=== PATIENT | male | born 1940 | race Caucasian/White ===

== ENCOUNTER → 2019-11-17 09:34 | Outpatient (CLI) | payer MEDICARE ==
--- NOTE | ~2019-11-17 | EC ---
PATIENT:BUTCH CHANG DATE OF SERVICE: 11/17/19 SEX: M MEDICAL RECORD: [id number] DATE OF : 40 LOCATION:[facility] AGE OF PATIENT: 79 ADMISSION DATE: 11/17/19 REFERRING PHYSICIAN: INTERPRETING PHYSICIAN: RADHA KOHLER MD ECHOCARDIOGRAM REPORT ECHO CHARGES 4 ECHO COMPLETE Date: 11/17/19 CLINICAL DIAGNOSIS: ANGINA/HAIR/SOB H/O HTN ECHOCARDIOGRAPHIC MEASUREMENTS (adult normal given) AC root (d.<3.7cm) 4.2 cm LV Septum d (<1.2 cm> 1.5 cm Valve Excursion 2.2 cm LV Septum (systole) 2.0 cm Left Atria (s.<4.0cm> 3.5 cm LVPW d(<1.2cm) 1.5 cm RV (d.<2.3cm) 2.8 cm LVPW (sytole) 2.0 cm LV diastole(<5.6CM) 7.1 cm MV E-F(>70mm/sec) cm LV systole 5.2 cm LVOT Diameter 2.1 cm MV exc.(>10mm) cm Est.ejection fraction (50-75%) % DOPPLER: LVIT cm/sec A 50.0 cm/sec E 117 cm/sec LA cm/sec RVSP 33.0 mmHg LVOT 81.0 cm/sec AOP1/2T m/s Asc. Ao 132 cm/sec RVOT 38.0 cm/sec RA cm/sec PA 120 cm/sec AV Gradient Peak 7.0 mmHg AV Mean 3.5 mmHg AV Area 1.9 cm MV Gradient Peak 5.9 mmHg MV Mean 2.0 mmHg MV Area cm COMMENTS: OP - HC Injection Molding Supervisor: 1 LINK LAVERNE Tow Truck Operator: 1 Dr. Kohler TAPE# PACS Pericardial Effusion N DATE OF SERVICE: ECHOCARDIOGRAM FINDINGS: 1. Left ventricular chamber size is mildly dilated. Left ventricular systolic function is moderately reduced at 35%. 2. Left atrium is within normal limits at 3.5 cm. Right atrium and right ventricular chamber sizes are mildly dilated. 3. Valvular structures have normal structure and motion. ECHOCARDIOGRAM REPORT [id number] BUTCH CHANG 4. Doppler interrogation reveals mild aortic insufficiency, moderate mitral regurgitation, mild tricuspid regurgitation, no other valvular insufficiency or stenosis. Pulmonary systolic pressure estimated at 33 mmHg. 5. No evidence of pericardial effusion or left ventricular thrombus. TRANSINT:[id number] Voice Confirmation ID: [id number] DOCUMENT ID: [id number] RADHA KOHLER MD CC: [id number] DICTATION DATE: 11/18/19 1108 PEDIATRICIAN/MEDICAL DOCTOR: 11/18/19 1308 DEP CLI 11/17/19 [facility] [address] [id number]
== END | disposition home or self-care (01) ==
LOC: D.HCCECHO 09:34
PROVIDERS: ATTEND Internal Medicine Interventional Cardiology
DX: I10 Essential (primary) hypertension (principal); I20.9 Angina pectoris, unspecified

== ENCOUNTER 2019-11-30 09:38 | Inpatient (IN) | payer MEDICARE ==
[2019-11-30] VITALS (11 sets, daily range): BP systolic 118–136; BP diastolic 47–85; BMI 23.5; BMI 22.5
[~2019-11-30] VITALS: Ht 182.9 cm; Wt 79.9 kg
--- NOTE | ~2019-11-30 | OP ---
PATIENT NAME: BUTCH CHANG MEDICAL RECORD: [id number] :40 LOCATION:[facility] ADMISSION DATE: SURGEON: RADHA KURTZ MD DATE OF OPERATION: 11/30/2019 DATE OF SERVICE: 11/30/2019 PROCEDURES: 1. Left heart catheterization. 2. Selective coronary angiography. 3. Left ventriculogram. INDICATION: Angina and coronary artery disease. PROCEDURE IN DETAIL: After informed consent was obtained and after detailed explanation of risks, benefits as well as alternative therapies, the patient elected to proceed with angiogram and heart catheterization. The right radial area was prepped and draped in normal sterile fashion. Right radial artery was cannulated via modified Seldinger technique with placement of 6-Namibian sheath. All catheters exchanged through this sheath. FINDINGS: Left ventriculogram was performed in standard 30-degree BASURTO view, reveals ejection fraction in lower limits of normal 45-50%. SELECTIVE CORONARY ANGIOGRAPHY: 1. Left main is with no significant angiographic disease. 2. Left anterior descending has 70% to 80% stenosis proximally. 3. The left circumflex has 99% stenosis with what appears to be ulceration proximally with good distal vessels suitable for grafting. The left anterior as well as has a good distal vessel suitable for grafting. 4. Right coronary artery has 90% stenosis times 2 with good distal vessel suitable for grafting. OVERALL IMPRESSION: Severe 3-vessel coronary artery disease, evaluate for bypass surgery. TRANSINT:[id number] Voice Confirmation ID: [id number] DOCUMENT ID: [id number] RADHA KURTZ MD CC: [id number] DICTATION DATE: 11/30/19 1129 OFFICE ASSISTANT: 11/30/19 [id number] [place] [address]
--- NOTE | ~2019-11-30 | HEMODYNAMI ---
PATIENT:BUTCH CHANG MEDICAL RECORD: [id number] : 40 LOCATION:[facility] ADMISSION DATE: 11/30/19 Generatedon:11/30/201911:31 Patient name: BUTCH CHANG Patient #: [id number] SSN: : 1940 Date of study: 11/30/2019 Page: Of Hemodynamic Procedure Report Patient Data Patient Demographics Procedure consent was obtained First Name: BUTCH Gender: Male Last Name: CHARLENE : 1940 Patient #: [id number] Age: 79 year(s) Race: Unknown Additional ID: [id number] Contact details Address: [address] [place] [address] State: [place] City: [place] Zip code: [address] Past Medical History Allergies: No known allergies Admission Admission Data Admission Date: 11/30/2019 Admission Time: 9:38 Procedure Procedure Types Cath Procedure Diagnostic Procedure LHC LH w/Coronaries Sedation Charges Moderate Sedation up to 15 minutes Procedure Description Procedure Date Procedure Date: 11/30/2019 Procedure Start Time: 11:17 Procedure End Time: 11:28 Procedure Staff Name Function Dexter Kohler MD Performing Physician Shanae Hoffman RT Monitor Hien Perales RT Scrub Lizandro Major RN Nurse Procedure Data Cath Procedure Fluoroscopy Diagnostic fluoroscopy Total fluoroscopy Time: 2.6 time: 2.6 min min Diagnostic fluoroscopy Total fluoroscopy dose: 697 dose: 697 mGy mGy Contrast Material Contrast Material Type Amount (ml) Isovue 300 65 Entry Location Entry Primary Successful Side Size Upsize Upsize Entry Closure Sexton ccessful Closure Location (Fr) 1 (Fr) 2 (Fr) Remarks Device Remarks Radial Right 6 Fr Mechanical artery Short Compression Estimated blood loss: 10 ml Diagnostic catheters Device Type Used For End Catheter Placement DIAGNOSTIC Hay 110cm 5 Procedure Fr catheter ([id number]) Procedure Complications No complications Procedure Medications Medication Administration Route Dosage Oxygen etCO2 Nasal cannula 2 l/min Lidocaine 2% added to field 20 Heparin Flush Bag added to field 2 bags (1000units/500ml NS) 0.9% NaCl I.V. 100 ml/hr Radial Cocktail I.A. 1 syringe (Verapamil 2mg/Nitro 400mcg/Heparin 1500units) Versed I.V. 1 mg Fentanyl I.V. 50 mcg Versed I.V. 1 mg Fentanyl I.V. 50 mcg Versed I.V. 0.5 mg Hemodynamics Rest Heart Rate: 59 (bpm) Snapshots Pre Cath Intra NCS Post Cath Vital Signs Time Heart Resp SPO2 etCO2 NIBP (mmHg) Rhythm Pain Sedation Rate (ipm) (%) (mmHg) Status Level (bpm) 11:09:01 67 19 98 29.2 153/90(128) NSR 0 (11) 10(A) , No pain 11:13:15 67 23 98 23.2 145/88(102) NSR 0 (11) 10(A) , No pain 11:17:31 63 20 97 24.8 128/74(103) NSR 0 (11) 9(A) , No pain 11:21:41 81 19 93 9 113/72(83) NSR 0 (11) 9(A) , No pain 11:25:48 71 12 94 0 113/62(92) NSR 0 (11) 9(A) , No pain 11:29:07 70 13 94 0 115/67(84) NSR 0 (11) 10(A) , No pain Medications Time Medication Route Dose Verified Delivered Reason Notes Effectiveness by by 11:08:01 Oxygen etCO2 2 l/min Dexter Bone used for Nasal Edita Major RN procedure cannula 11:08:07 Lidocaine 2% added 20ml Dexter Renteria for local to vial Edita Kohler MD anesthetic field 11:08:12 Heparin Flush added 2 bags Dexter Renteria used for Bag to Edita Kohler MD procedure (1000units/500ml field NS) 11:08:22 0.9% NaCl I.V. 100 Dexter Bone Per ml/hr Edita Major RN physician 11:08:38 Radial Cocktail I.A. 1 Dexter Renteria for (Verapamil syringe Edita Kohler MD vasodilation 2mg/Nitro 400mcg/Heparin 1500units) 11:15:18 Versed I.V. 1 mg Dexter Bone for sedation Edita Major RN 11:15:24 Fentanyl I.V. 50 mcg Dexter Bone for sedation Edita Major RN 11:19:32 Versed I.V. 1 mg Dexter Bone for sedation Edita Major RN 11:19:35 Fentanyl I.V. 50 mcg Dexter Bone for sedation Edita Major RN 11:23:58 Versed I.V. 0.5 mg Dexter Bone for sedation Edita Major RN Procedure Log Time Note 10:50:54 Shanae Hoffman RT(R) sent for patient. Start room use. 10:58:35 Diagnostic Cath Status : Elective 10:59:01 Time tracking: Regular hours (M-F 7:00 - 5:00) 10:59:04 Plan of Care:Hemodynamics will remain stable., Cardiac rhythm will remain stable., Comfort level will be maintained., Respiratory function will remain adequate., Patient/ family verbilizes understanding of procedure., Procedure tolerated without complication., Recovers from procedure without complications.. 10:59:19 Patient received from Pre/Post Procedure Room to CCL 2 Alert and oriented. Tansferred to table in Supine position. 10:59:21 Signed procedure consent form obtained from patient. 10:59:22 Warm blankets applied, and annita hugger turned on for patient comfort. 10:59:22 Correct patient and procedure confirmed by team. 10:59:23 ECG and BP/O2 sat monitors applied to patient. 11:07:50 Vital chart was started 11:08:01 Baseline sample Acquired. 11:08:01 Oxygen 2 l/min etCO2 Nasal cannula was administered by Lizandro Major RN; used for procedure; Verbal order read back and verified. 11:08:06 Full Disclosure recording started 11:08:07 Lidocaine 2% 20ml vial added to field was administered by Dexter Kohler MD; for local anesthetic; Verbal order read back and verified. 11:08:12 Heparin Flush Bag (1000units/500ml NS) 2 bags added to field was administered by Dexter Kohler MD; used for procedure; Verbal order read back and verified. 11:08:22 0.9% NaCl 100 ml/hr I.V. was administered by Lizandro Major RN; Per physician; Verbal order read back and verified. 11:08:38 Radial Cocktail (Verapamil 2mg/Nitro 400mcg/Heparin 1500units) 1 syringe I.A. was administered by Dexter Kohler MD; for vasodilation; Verbal order read back and verified. 11:09:06 H&P Date Dictated: 11/01/2019 Within 30 days and on chart., H&P Addendum completed by physician on day of procedure. (MUST COMPLETE FOR ALL OUTPATIENTS). 11:09:09 Pre-procedure instructions explained to patient. 11:09:16 Family in waiting room. 11:09:18 Patient NPO since Midnight. 11:09:26 Patient allergic to No known allergies 11:09:29 Is the patient allergic to Iodine/contrast media? No. 11:09:32 Is patient on blood thinner?No 11:09:33 If diabetic: On Metformin? No 11:09:37 Snore? No 11:10:16 Sleep apnea? No 11:10:22 Patient pain scale 0/10 ?. 11:10:31 IV patent on arrival in left forearm with 0.9% NaCl at KVO. 11:13:41 Lab results completed and on chart. 11:14:04 Stress Test: yes; abnormal apically 11:14:13 Right Radial & Right Groin area was prepped with chlora-prep and draped in sterile fashion 11:14:15 Alarms reviewed by R. N. 11:14:15 Sharps counted by scrub and verified by R.N. 11:14:16 Physician paged 11:14:19 Physician arrived 11:14:19 --------ALL STOP TIME OUT------ 11:14:20 Final Timeout: patient, procedure, and site verified with staff and physician. All members of the team are in agreement. 11:14:23 Right Radial & Right Groin site verified by team. 11:14:28 Fire Safety Assessment: A--An alcohol-based skin anteseptic being used preoperatively., C--Open oxygen or nitrous oxide is being used., D--An ESU, laser, or fiber-optic light is being used. 11:14:33 Physical assessment completed. ASA score P 2 - A patient with mild systemic disease as per Dexter Kohler MD. 11:14:40 2) 60-89 Mildly reduced kidney function, and other findings (as for stage 1) point to kidney disease. 11:15:18 Versed 1 mg I.V. was administered by Lizandro Major RN; for sedation; Verbal order read back and verified. 11:15:24 Fentanyl 50 mcg I.V. was administered by Lizandro Major RN; for sedation; Verbal order read back and verified. 11:16:26 Maximum allowable contrast dose (3.7 X eGFR X 0.75)172 ml. 11:16:35 Sedation plan: IV Moderate Sedation Medication:Versed, Fentanyl 11:16:40 Use device set Radial Dx or PCI 11:16:42 Procedure started. 11:17:56 Local anesthetic to right radial artery with Lidocaine 2% by Dexter Kohler MD.INITIAL ACCESS ONLY 11:18:08 A 6 Fr Short sheath was inserted into the Right Radial artery 11:18:13 J wire advanced. 11:18:15 ACIST Syringe (67117) opened to sterile field. 11:18:16 Medline Cath Pack ([id number]) opened to sterile field. 11:18:16 Bag Decanter (2002S) opened to sterile field. 11:18:17 ACIST Hand Control (68869) opened to sterile field. 11:18:17 ACIST Manifold (68562) opened to sterile field. 11:18:18 Tegaderm 4 x 4 (1626W) opened to sterile field. 11:18:19 MBrace Wrist Support ([id number]) opened to sterile field. 11:18:22 EMERALD Guide Wire (502-697) opened to sterile field. 11:18:22 SHEATH 6FR RAIN (2166370) opened to sterile field. 11:18:33 A DIAGNOSTIC Hay 110cm 5 Fr catheter (789126) was advanced over the wire and used for Procedure. 11:19:19 LV angiography performed. 11:19:30 EF : 50 % 11:19:32 Versed 1 mg I.V. was administered by Lizandro Major RN; for sedation; Verbal order read back and verified. 11:19:35 Fentanyl 50 mcg I.V. was administered by Lizandro Major RN; for sedation; Verbal order read back and verified. 11:19:37 LCA angiography performed. 11:22:11 RCA angiography performed. 11:22:14 Catheter removed. 11:22:17 Proceeding to intervention. 11:22:36 6 Fr XBLAD3.5 guide catheter was inserted over the wire 11:23:58 Versed 0.5 mg I.V. was administered by Lizandro Major RN; for sedation; Verbal order read back and verified. 11:24:40 Surg consult 11::09 Sheath removed intact; hemostasis achieved with Mechanical Compression to the Right Radial artery. 11:25:12 Procedure ended.(Physican Out) 11::09 Fluoroscopy time 02.60 minutes. 11::13 Fluoroscopy dose: 697 mGy 11::13 Flurop Dose total: 697 11::19 Dose Area Product 49290 mGy/cm. 11::24 Contrast amount:Isovue 300 65ml. 11::26 Maximum allowable dose exceeded? No. 11:26:33 [place] band inflated with 10cc of air. 11::39 Post Procedure Pulses reassessed and unchanged 11::50 Post-procedure physical assessment completed. ASA score P 4 - A patient with severe systemic disease that is a constant threat to life as per Dexter Kohler MD. 11:26:53 Post procedure rhythm: unchanged. 11::58 Estimated blood loss: 10 ml 11:27:00 Post procedure instruction explained to patient.Patient verbalizes understanding. 11:27:44 Procedure type changed to Cath procedure, Diagnostic procedure, LHC, C w/Coronaries, Sedation Charges, Moderate Sedation up to 15 minutes 11:27:46 Procedure and supply charges have been captured, reviewed, submitted and are correct. 11:27:55 ZEPHYR REGULAR TR BAND (223794) opened to sterile field. 11:28:09 Procedure Complication : No complications 11:28:11 Vital chart was stopped 11::16 [facility] Findings: MVD- CABG consult 11::24 Patient transfered to Pre/Post Procedure Room with Stretcher. 11:28:32 Procedure ended. 11:28:32 Full Disclosure recording stopped 11:28:38 End room use (Document Last) 11:29:34 End room use (Document Last) Device Usage Item Name Manufacture Quantity Catalog Hospital Part Current Minima l Lot# / Number Charge Number Stock Stock Serial# Code ACIST Acist 1 39731 588442 839293 490689 20 Syringe P-Commerce (57687) MediaRoost Inc Medline Medline 1 [id number] 609127 85145 466094 5 Cath Pack (AITY23021) Bag Microtek 1 029937 65519 815298 5 Decanter Medical Inc. () ACIST Hand Acist 1 28090 781742 734264 843963 5 Control Medical (34065) Systems Inc ACIST Acist 1 68990 491159 093756 769789 5 Manifold Medical (23832) Systems Inc Tegaderm 4 3M 1 1626W 242984 085622 718646 5 x 4 (1626W) MBrace Advanced 1 140-0250-00 611294 65262 461751 5 Wrist Vascular Support Dynamics (390673947) EMERALD Cardinal 1 967-265 203861 768547 445832 5 Guide Wire Health (868-527) SHEATH 6FR Cardinal [address] 8479[address] 04[address]298 557[address] [facility] Health (6733746) DIAGNOSTIC Terumo 1 40-4806 513078 603438 425321 5 Hay 110cm 5 Fr catheter (109159) ZEPHYR Cardinal 1 180235 286561 3615701 615454 5 REGULAR TR Health BAND (886834) Signature Audit [place] Stage Time Signature Unsigned Intra-Procedure 11/30/2019 Shanae Hoffman 11:29:35 AM RT(R) Intra-Procedure 11/30/2019 Lizandro Major RN 11:30:44 AM Intra-Procedure 11/30/2019 Dexter Kohler 11:31:07 AM Signatures Performing Physician : Signature : Dexter Kohler MD Date : Time : Monitor : Shanae Hoffman Signature : RT Date : Time : Nurse : Lizandro Major RN Signature : Date : Time : [facility] [address] [place] [address]
--- NOTE | ~2019-11-30 | TEE ---
PATIENT:BUTCH CHANG MEDICAL RECORD: [id number] LOCATION:[place] [address] AGE OF PATIENT: 79 ADMISSION DATE: 11/30/19 SEX: M REFERRING PHYSICIAN: INTERPRETING PHYSICIAN: RADHA KOHLER MD TRANSESOPHAGEAL ECHOCARDIOGRAM Date: 12/01/19 MEMO CHARGE Y INDICATIONS: PREMEDICATIONS: CABG PATIENT'S RESPONSE PROCEDURE DOPPLER MEASUREMENTS: LVIT LA 3.8 PA 107 RA LVOT 90 RVOT 74 Asc. Ao 130 AV Gradient Peak 6.77 AV Mean 3.90 AV Area 3.3 MV Gradient Peak 5.36 MV Mean 1.44 MV Area INTERPRETATION: Doppler: 2-D: COLOR FLOW DOPPLER NORMAL SALINE STUDY: MISCELLANOUS: DIAGNOSIS: PLAN: Collection Technician:1 Dr. Kohler Assistant Curator: Randi MORALEZ COMMENTS: CYR PATIENT DATE OF SERVICE: 12/01/2019 PROCEDURE: Transesophageal echo evaluation of valvular structures during bypass surgery. FINDINGS: 1. Left ventricular chamber size is within normal limits. Left ventricular systolic function is normal at 55%. 2. Left atrium, right atrium and right ventricular chamber sizes are within TRANSESOPHAGEAL ECHOCARDIOGRAM REPORT [id number] BUTCH CHANG normal limits. 3. Valvular structures have normal structure and motion. 4. Doppler interrogation only reveals trace aortic insufficiency, trace mitral regurgitation, no other valvular insufficiency or stenosis. 5. No evidence of pericardial effusion or left ventricular thrombus. TRANSINT:[id number] Voice Confirmation ID: [id number] DOCUMENT ID: [id number] RADHA KOHLER MD CC: [id number] DICTATION DATE: 12/02/19 1005 ROLLER OPERATOR: 12/02/19 2328 ADM [address] [place] [address]
--- NOTE | ~2019-11-30 | EC ---
PATIENT:BUTCH CHANG DATE OF SERVICE: 11/30/19 SEX: M MEDICAL RECORD: [id number] DATE OF : 40 LOCATION:[place] [address] AGE OF PATIENT: 79 ADMISSION DATE: 11/30/19 REFERRING PHYSICIAN: INTERPRETING PHYSICIAN: RADHA KOHLER MD ECHOCARDIOGRAM REPORT ECHO CHARGES 4 ECHO COMPLETE Date: 12/01/19 CLINICAL DIAGNOSIS: CHEST PAIN ECHOCARDIOGRAPHIC MEASUREMENTS (adult normal given) AC root (d.<3.7cm) 4.5 cm LV Septum d (<1.2 cm> 1.6 cm Valve Excursion 2.3 cm LV Septum (systole) 1.7 cm Left Atria (s.<4.0cm> 4.0 cm LVPW d(<1.2cm) 1.5 cm RV (d.<2.3cm) 4.1 cm LVPW (sytole) 2.0 cm LV diastole(<5.6CM) 5.5 cm MV E-F(>70mm/sec) cm LV systole 3.8 cm LVOT Diameter 2.2 cm MV exc.(>10mm) 1.8 cm Est.ejection fraction (50-75%) % DOPPLER: LVIT cm/sec A 104.0cm/sec E 51.0 cm/sec LA 3.8 cm/sec RVSP 24 mmHg LVOT 90 cm/sec AOP1/2T 572 m/s Asc. Ao 130 cm/sec RVOT 74 cm/sec RA cm/sec PA 107 cm/sec AV Gradient Peak 6.77 mmHg AV Mean 3.90 mmHg AV Area 3.3 cm MV Gradient Peak 5.36 mmHg MV Mean 1.44 mmHg MV Area cm COMMENTS: [facility] PATIENT Crimp Setter: 2 BRYAN MORALEZ Clerk Secretary: 1 Dr. Kohler TAPE# PAC Pericardial Effusion N DATE OF SERVICE: ECHOCARDIOGRAM FINDINGS: 1. Left ventricular chamber size is within normal limits. Left ventricular systolic function is normal at 55%. 2. Left atrium is upper limits of normal at 4.0 cm. Right atrium and right ventricular chamber sizes are mildly dilated. 3. Valvular structures have normal structure and motion. ECHOCARDIOGRAM REPORT [id number] BUTCH CHANG 4. Doppler interrogation reveals mild aortic insufficiency, mild mitral regurgitation, mild tricuspid regurgitation, no other valvular insufficiency or stenosis. Pulmonary systolic pressure estimated at 24 mmHg. 5. No evidence of pericardial effusion or left ventricular thrombus. TRANSINT:[id number] Voice Confirmation ID: [id number] DOCUMENT ID: [id number] RADHA KOHLER MD CC: [id number] DICTATION DATE: 12/02/19 1006 ARTIFICIAL GLASS EYE MAKER: 12/02/19 1651 ADM IN [facility] [address] [place] [address]
[2019-11-30] MEDS ORDERED: ACETAMINOPHEN500 M1 PO (10:24)
[2019-11-30] MEDS ORDERED: FLOMAX0.4 MG PO (10:27)
[2019-11-30 10:47] LABS: BASOPHILS 0.6 % (0-2); EOSINOPHILS 5.9 % (0-7); HEMATOCRIT 45.2 % (42.0-54.0); HEMOGLOBIN 14.2 g/dL (13.5-17.5); IMMATURE GRANULOCYTES 0.5 % (0-5); LYMPHOCYTES 23.6 % (15-50); MCH 28.6 pg (26.0-34.0); MCHC 31.4 g/dL (31.0-37.0); MCV 90.9 fL (80.0-100.0); MEAN PLATELET VOLUME 9.6 fL (7.4-10.4); MONOCYTES 7.8 % (2-11); NEUTROPHILS 61.6 % (40-80); PLATELET COUNT 326 10x3/uL (130-400); RBC 4.97 10x6/uL (4.20-6.10); RDW 14.8 % (11.5-14.5); WBC 12.5 10x3/uL (4.8-10.8)
[2019-11-30 11:01] LABS: ANION GAP 11.5 mmol/L (8-16); CALCIUM 9.9 mg/dL (8.5-10.1); CARBON DIOXIDE 27.3 mmol/L (21.0-32.0); CHOL - HDL RATIO 6.2 ratio (2.3-4.9); CREATININE - SERUM 1.2 mg/dL (0.6-1.3); LDL-HDL RATIO 3.9 ratio (1.5-3.5); POTASSIUM - SERUM 4.8 mmol/L (3.5-5.1)
--- NOTE | 2019-11-30 11:40 | NUR ---
PT ARRIVED BY STRETCHER. PLACED ON MONITORS. ASSESSMENT COMPLETED. VSS. CALL LIGHT WITHIN REACH. FRIEND AT BEDSIDE.
--- NOTE | 2019-11-30 11:55 | NUR ---
RIGHT WRIST Z BAND IN PLACE. NO BLEEDING/HEMATOMA NOTED. CALL LIGHT WITHIN REACH. NO NEEDS AT THIS TIME.
--- NOTE | 2019-11-30 12:25 | NUR ---
RIGHT WRIST Z BAND IN PLACE. NO BLEEDING/HEMATOMA NOTED. CALL LIGHT WITHIN REACH. NO NEEDS AT THIS TIME. DENIES NAUSEA. TOLERATING SIPS OF WATER.
--- NOTE | 2019-11-30 12:45 | NUR ---
DR. CYR AT BEDSIDE. SPEAKING WITH PT AND PT'S SIG OTHER.
--- NOTE | 2019-11-30 13:20 | NUR ---
2cc OF AIR REMOVED FROM Z BAND. NO BLEEDING/HEMATOMA NOTED. CALL LIGHT WITHIN REACH. FAMILY AT BEDSIDE.
--- NOTE | 2019-11-30 13:45 | NUR ---
IT COMPLIANCE MANAGER AT BEDSIDE.
--- NOTE | 2019-11-30 13:45 | NUR ---
3cc OF AIR REMOVED FROM Z BAND. NO BLEEDING/HEMATOMA NOTED. CALL LIGHT WITHIN REACH. FAMILY AT BEDSIDE. NO NEEDS AT THIS TIME.
--- NOTE | 2019-11-30 14:00 | NUR ---
4cc OF AIR OUT OF Z BAND. NO BLEEDING/HEMATOMA NOTED. VSS. CALL LIGHT WITHIN REACH. PT SET UP WITH SANDWICH TRAY AND DRINK AT THIS TIME. DENIES NAUSEA/PAIN.
--- NOTE | 2019-11-30 14:30 | NUR ---
PT AMBULATED TO RESTROOM. VOIDED WITHOUT DIFFICULTY. STEADY GAIT NOTED. RIGHT WRIST Z BAND REMOVED DRESSING APPLIED. NO BLEEDING/HEMATOMA NOTED. REPORT GIVEN TO REBECCA BEARD. PT'S FAMILY AWARE OF PT TRANSFERRING TO CVICU.
--- NOTE | 2019-11-30 14:49 | NUR ---
PT AMBULATED TO ROOM CV02. REFUSED WHEELCHAIR. STEADY GAIT NOTED. HANDOFF GIVEN TO NURSE AT BEDSIDE. RIGHT WRIST DRESSING C/D/I. NO S/S OF HEMATOMA NOTED. NO S/S OF DISTRESS NOTED. ALL BELONGINGS SENT HOME WITH PT'S SIGNIFICANT OTHER.
--- NOTE | 2019-11-30 15:08 | NUR ---
PT ARRIVED TO CVICU FROM INSURANCE MARKETING SPECIALIST. AMBULATORY. VSS AND WNL. NO SIGNS OF DISTRESS NOTED. ANSWERS ALL QUESTION. ADMISSION ASSESSMENT PERFORMED. NO FURTHER NEEDS NOTED. CALL LIGHT WITHIN REACH. WILL CONT TO FOLLOW POC
--- NOTE | 2019-11-30 15:11 | NUR ---
PT SIGNIFICANT OTHER IS ROX LEONARDO [phone]
--- NOTE | 2019-11-30 15:30 | NUR ---
PT BACK FROM XRAY. HOOKED BACK UP TO ICU MONITOR
[2019-11-30 15:44] LABS: PHOSPHOROUS 3.7 mg/dL (2.5-4.9); T4 THYROXIN - FREE 1.23 ng/dL (0.76-1.46); THYROID STIMULATING HORMONE 0.96 uIU/mL (0.36-3.74); URIC ACID 6.9 mg/dL (2.6-7.2)
[2019-11-30 16:27] LABS: APTT 30.4 SECONDS (22.8-39.4); INR 1.04 (0.85-1.17); PROTIME 13.5 SECONDS (11.6-15.0)
--- NOTE | 2019-11-30 17:00 | NUR ---
CONSENTS FOR PROCEDURE TOMORROW SIGNED AND PLACED ON CHART. PT HAD NO QUESTIONS AT THIS TIME. WILL CONTINUE TO MONITOR
[2019-11-30 17:21] LABS: BILIRUBIN NEGATIVE (NEGATIVE); GLUCOSE NEGATIVE (NEGATIVE); KETONE NEGATIVE (NEGATIVE); NITRITE NEGATIVE (NEGATIVE); RED CELLS - URINE 0-5 /hpf (0-5); SPECIFIC GRAVITY 1.015 (1.005-1.020); UROBILINOGEN NORMAL (NORMAL); WHITE CELLS - URINE OCC /hpf (NEGATIVE)
--- NOTE | 2019-11-30 17:26 | NUR ---
RELAYED PT URINE SAMPLE RESULTS TO DR CYR'S NURSE ALICIA.
--- NOTE | 2019-11-30 19:00 | NUR ---
Report received from off going nurse. Pt is laying in bed watching tv at this time. No needs voiced at this time. No s/s of distress. Will continue to monitor.
--- NOTE | 2019-11-30 21:00 | NUR ---
Pt is resting in bed with eyes closed. No needs voiced at this time. No s/s of distress noted. Will continue to monitor.
--- NOTE | 2019-11-30 23:00 | NUR ---
Reassessment completed, see flowsheet for details. Pt is laying in bed with eyes closed. No needs voiced. No s/s of distress. Will continue to monitor.
[2019-12-01] VITALS (33 sets, daily range): BP systolic 90–139; BP diastolic 43–79; Ht 182.9 cm; Wt 79.9 kg
--- NOTE | 2019-12-01 01:00 | NUR ---
Pt is laying in bed with eyes closed. No needs noted. No s/s of distress. Will continue to monitor.
--- NOTE | 2019-12-01 03:00 | NUR ---
Reassessment completed, see flowsheet for details. Pt is laying in bed with eyes closed. No needs noted at this time. No s/s of distress. Will continue to monitor.
[2019-12-01 13:16] LABS: BASOPHILS 0.3 % (0-2); EOSINOPHILS 0.6 % (0-7); HEMATOCRIT 36.5 % (42.0-54.0); HEMOGLOBIN 11.5 g/dL (13.5-17.5); IMMATURE GRANULOCYTES 0.6 % (0-5); LYMPHOCYTES 8.2 % (15-50); MCH 28.6 pg (26.0-34.0); MCHC 31.5 g/dL (31.0-37.0); MCV 90.8 fL (80.0-100.0); MEAN PLATELET VOLUME 9.4 fL (7.4-10.4); MONOCYTES 8.1 % (2-11); NEUTROPHILS 82.2 % (40-80); PLATELET COUNT 269 10x3/uL (130-400); RBC 4.02 10x6/uL (4.20-6.10); RDW 14.8 % (11.5-14.5)
[2019-12-01 13:25] LABS: APTT 28.4 SECONDS (22.8-39.4); INR 1.23 (0.85-1.17); PROTIME 15.4 SECONDS (11.6-15.0)
[2019-12-01 13:28] LABS: WBC 19.7 10x3/uL (4.8-10.8)
--- NOTE | 2019-12-01 14:45 | NUR ---
AT BED SIDE ORDERS RECIEVED TO REMOVE FEMORAL A-LINE. PRESSURE HELD AND NO SIGNS OF BLEEDING. WILL CONTINUE TO MONITOR.
--- NOTE | 2019-12-01 16:05 | NUR ---
NOTIFIED OF RECENT ABG ORDERS TO EXTUBATE. PT EXTUBATED TO 2L NC PT POSITIONED FOR COMFORT WILL CONTINUE TO MONITOR. PT POSITIONED FOR COMFORT.
--- NOTE | 2019-12-01 17:12 | MORECARE ---
CASE MANAGEMENT DISCHARGE SUMMARY PATIENT: BUTCH CHANG UNIT: [id number] ADM DATE: 11/30/19 AGE: 79 : 40 SEX: M ROOM/BED: [place] AUTHOR: SHELTON DIAZ PHYSICIAN: REFERRING PHYSICIAN: DANA CYR MD DATE OF SERVICE: 12/01/19 Discharge Plan Patient Name: BUTCH CHANG Facility: [facility]:[place] : 1940 Planned Disposition: Home Anticipated Discharge Date: Discharge Date: Expected LOS: Initial Reviewer: [email or web address] Initial Review Date: 12/01/2019 Generated: 12/01/19 6:12 pm Patient Name: BUTCH CHANG Page 82053 at 1712 All edits/amendments must be made on the electronic document DICTATION DATE: 12/01/191711 BOX STRAPPER: CITLALY 12/01/191711 RPT#: [id number] DC DATE: STATUS: ADM IN [facility] [address] [place] [address] END OF REPORT
--- NOTE | 2019-12-01 17:19 | MORECARE ---
CASE MANAGEMENT DISCHARGE SUMMARY PATIENT: BUTCH CHANG UNIT: [id number] ADM DATE: 11/30/19 AGE: 79 : 40 SEX: M ROOM/BED: [facility] AUTHOR: EMILY,DOC PHYSICIAN: REFERRING PHYSICIAN: DANA CYR MD DATE OF SERVICE: 12/01/19 Discharge Plan Patient Name: BUTCH CHANG Facility: [facility]:[place] : 1940 Planned Disposition: Home Anticipated Discharge Date: Discharge Date: Expected LOS: Initial Reviewer: [id number] Initial Review Date: 12/01/2019 Generated: 12/01/19 6:18 pm Comments DCP- Discharge Planning Updated by [email or web address]: Diana Landeros on 12/01/19 4:[address] Patient Name: BUTCH CHANG Admission Status: Elective Accout number: [id number] Admission Date: 11-30-2019 : 1940 Admission Diagnosis: Attending: DANA CYR Current LOS: 1 Anticipated DC Date: Planned Disposition: Home Primary Insurance: [employer] MEDICARE PPO or HMO Discharge Planning Comments: CM called and spoke with patient's spouse Genesis to complete initial dc planning assessment. CM educated patient on the CM role and verbal consent given by patient to complete assessment. Patient lives at home with spouse. At discharge patient plans to return and feels this is a safe discharge. CM discussed availability of home health, rehab services, and medical equipment. Patient may need walk test if 02 required at discharge. Patient denied known discharge needs at this time. CM will continue to follow and will assist as needed with dc plans/needs. Script Supervisor: Diana Landeros DCPIA - Discharge Planning Initial Assessment Updated by [email or web address]: Diana Landeros on 12/01/19 5:12 pm * Is the patient Alert and Oriented? Yes * How many steps to enter\exit or inside your home? ramp * [facility] [place] * Pharmacy [facility] - [place] * Preadmission Environment Home with Family * ADLs Independent * Equipment Cane * List name and contact numbers for known caregivers / representatives who currently or will assist patient after discharge: Genesis Tidwell - Spouse - [phone], * Verbal permission to speak to the caregivers and representatives has been obtained from the patient. Yes * Community resources currently utilized None * Additional services required to return to the preadmission environment? No * Can the patient safely return to the preadmission environment? Yes * Has this patient been hospitalized within the prior 30 days at any hospital? No Last DP export: 12/01/19 4:12 pm Patient Name: BUTCH CHANG Page [id number] at 1719 All edits/amendments must be made on the electronic document DICTATION DATE: 12/01/191717 INSURANCE CLAIM AUDITOR: CITLALY 12/01/191717 RPT#: [id number] DC DATE: STATUS: ADM IN [facility] [address] [place] [address] END OF REPORT
--- NOTE | 2019-12-01 19:20 | NUR ---
REPORT RECEIVED, SHIFT ASSESSMENT COMPLETED PER FLOW SHEET, SEE FOR DETAILS. AJITH AND CVP LINES LEVELED AND ZEROED WITH GOOD WAVEFORM. PULLING 250-500 ON INCENTIVE SPIROMETER. WATER PROVIDED PER PATIENT'S REQUEST, TOLERATING WELL, DENIES OTHER NEEDS. CALL LIGHT WITHIN REACH. WILL CONTINUE TO MONITOR. 2104 SCHEDULED MEDS GIVEN, SEE EMAR FOR DETAILS. PULLING 500-750 ON INCENTIVE SPIROMETER. CALL LIGHT WITHIN REACH. DENIES NEEDS. 0 REASSESSMENT COMPLETED PER FLOW SHEET, SEE FOR DETAILS. NO ACUTE CHANGES NOTED. WILL CONTINUE TO MONITOR.
[2019-12-02] VITALS (24 sets, daily range): BP systolic 108–136; BP diastolic 51–74
--- NOTE | 2019-12-02 | NUR ---
ARTERIAL LINE FLAT, LINE ZEROED AND LEVELED, UNABLE TO OBTAIN A READING. CUFF BP STABLE. PATIENT AAOX4. ARTERIAL LINE DISCONTINUED WITH CATHETER TIP INTACT, MANUAL PRESSURE HELD UNTIL HEMOSTASIS ACHIEVED, NO ACUTE DISTRESS NOTED. WILL CONTINUE TO MONITOR. 0200 SUBSTERNAL DRESSING CHANGED PER ORDERS, TOLERATED WELL. 0300 REASSESSMENT COMPLETED PER FLOW SHEET, SEE FOR DETAILS. 0500 CHG BATH GIVEN, BILATERAL LEGS COBAN DRESSING REMOVED, SARAI HOSE PLACED, JACOB CARE PROVIDED. TOLERATED ALL WELL, WILL CONTINUE TO MONITOR. 0600 RESTING, NO ACUTE DISTRESS NOTED. WILL CONTINUE TO MONITOR.
[2019-12-02 06:15] LABS: HEMATOCRIT 37.3 % (42.0-54.0); HEMOGLOBIN 11.4 g/dL (13.5-17.5); MCHC 30.6 g/dL (31.0-37.0); MCV 91.6 fL (80.0-100.0); MEAN PLATELET VOLUME 9.7 fL (7.4-10.4); RBC 4.07 10x6/uL (4.20-6.10); RDW 15.3 % (11.5-14.5)
[2019-12-02 06:33] LABS: ALBUMIN 2.8 g/dL (3.4-5.0); BILIRUBIN - TOTAL 0.81 mg/dL (0.2-1.3); CARBON DIOXIDE 26.7 mmol/L (21.0-32.0); CREATININE - SERUM 1.1 mg/dL (0.6-1.3)
[2019-12-02 06:36] LABS: ANION GAP 11.2 mmol/L (8-16); POTASSIUM - SERUM 3.9 mmol/L (3.5-5.1)
--- NOTE | 2019-12-02 07:30 | NUR ---
SHIFT REPORT RECEIVED. AWAKE AND ALERT. ON 2L O2 VIA NC. MIDSTERNAL INCISION WITH DRESSING C/D/I. SUBTERNAL CT X 2 TO 20CM SUCTION, NO AIR LEAK NOTED. SEROSANG DRAINAGE NOTED. LEFT HAWA DRAIN IN PLACE. DRESSING C/D/I. RIJ WITH PLASMOLYTE INFUSING AT 100ML/HR, AND ZINACEF INFUSING AT 11.4ML/HR. JACOB CATHETER IN PLACE. NALINI URINE NOTED. BLE HAVEST SITE CATHEAD WORKER. TEDS ON. CALL LIGHT IN REACH. SAFETY MEASURES IN PLACE. WILL CONTINUE TO MONITOR.
--- NOTE | 2019-12-02 09:50 | NUR ---
DR. CYR AT BEDSIDE. SET UP FOR CHEST TUBE REMOVAL. ATTEMPTED TO REACH SPOUSE. CALL BACK NUMBER LEFT ON ANSWERING MACHINE. WILL CONTINUE TO MONITOR.
--- NOTE | 2019-12-02 10:41 | OP ---
PATIENT NAME: BUTCH CHANG MEDICAL RECORD: [id number] :40 LOCATION:D.CVI D.CV05 ADMISSION DATE:11/30/19 SURGEON: RYAN CYR MD DATE OF OPERATION: 12/01/2019 SURGEON: Ryan Cyr MD DIRECTOR OF BANDS: Andrei Hayes MD PROCEDURES PERFORMED: 1. Coronary artery bypass graft times 4 (left internal mammary artery to LAD, reverse saphenous vein graft from aorta to obtuse marginal, from the site of vein graft to the ramus intermedius distally, and aorta to the posterior ascending artery). 2. Endoscopic saphenous vein harvest. PREOPERATIVE DIAGNOSES: Coronary artery disease with left main equivalent. POSTOPERATIVE DIAGNOSES: Coronary artery disease with left main equivalent. ANESTHESIA: General endotracheal anesthesia. ESTIMATED BLOOD LOSS: Total cardiopulmonary bypass with Cell Saver retransfusion. COMPLICATIONS: None. SPECIMENS: None. CONDITION: Stable. DISPOSITION: CV ICU. OPERATIVE FINDINGS: 1. Transesophageal echocardiography confirmed a small jet of aortic insufficiency without left ventricular dilatation as seen on the preop transthoracic echo, normal left ventricular function. 2. Small greater saphenous vein from both thighs harvested endoscopically on the left. The right upper thigh with bridging incisions, but only a 2-inch portion was available for use on the right thigh and it was used for the small segment to the ramus. The best piece was placed on the obtuse marginal and a somewhat smaller piece to the posterior descending artery. 3. A 4.2 cm uncoiled ascending aorta without evidence of aneurysm and with normal wall thickness. INDICATIONS FOR OPERATION: Coronary artery disease with crescendo angina and dyspnea. ADDITIONAL OPERATIVE FINDINGS: 1. LAD 2.0 mm. 2. Obtuse marginal 2.0 mm. 3. Ramus intermedius 1.5 mm. 4. Posterior descending artery 1.5 mm with severe disease. DESCRIPTION OF PROCEDURE: The patient was brought to the operating suite. OPERATIVE REPORT [id number] BUTCH CHANG General anesthesia was obtained. The patient was prepped and draped. Greater saphenous vein harvested with bridging incisions in the right thigh, endoscopic vein in left thigh and bridging incisions in left lower leg. Side branches were oversewn or tied. This portion of the procedure was performed by Dr. Hayes, required 45 minutes to 1 hour of general anesthetic time that was saved by using pizza hut assistant surgeon. Median sternotomy incision was made. Subcutaneous tissue was divided with electrocautery. The sternum was divided with a saw. Left hemisternum was elevated. Left pleural cavity was entered. The left internal mammary artery and vein was taken down as a pedicle graft. Sternal retractor was placed. Heparin was given. Aorta was cannulated. Dual stage venous cannula was placed. Activated clotting time was appropriately elevated. The patient was placed on cardiopulmonary bypass. The internal mammary was clipped distally and made ready for anastomosis. Sites for distal anastomoses were selected. Retrograde cardioplegia cannula was inserted. Antegrade cardioplegic cannula was inserted. The patient was cooled. Crossclamp was placed. Cardioplegia was given antegrade and retrograde and this was repeated at intervals during cross clamp. Distal anastomosis was performed in standard technique. Proximal anastomosis with single cross-clamp technique. Aortic root de-aired and flow restored. Single sutures in the proximal and then an end-to-side to the ramus graft. The patient was fully rewarmed, weaned from cardiopulmonary bypass and was stable. The patient was decannulated. The cannula sites were oversewn. Protamine was given. Thorough irrigation was undertaken. Hemostasis was assured. Grafts lay appropriately. Good Doppler signals were noted. Left chest was evacuated and irrigated. The internal mammary harvest site was inspected for bleeding. Pericardial fat was loosely reapproximated in the midline. Sternum was closed with wires. Fascia was closed. Subcutaneous tissue was closed. Skin was closed. Dermabond was placed. The needle and sponge counts were reported as correct and the patient was taken to ICU in stable condition. TRANSINT:[id number] Voice Confirmation ID: [id number] DOCUMENT ID: [id number] RYAN CYR MD at 1041 CC: RADHA KURTZ [id number] DICTATION DATE: 12/01/19 1301 LIMB DRIVER: 12/01/19 1332 ADM IN [facility] [address] [place] [address]
--- NOTE | 2019-12-02 11:10 | NUR ---
RE-ASSESSMENT COMPLETED. PAIN 6/10 AT INCISION SITE. PAIN MED HAS BEEN GIVEN PER ORDERS. FEMI CHEST TUBES HAVE BEEN REMOVED. HAWA DRAIN AND TPM WIRE REMAIN IN PLACE. NO FURTHER NEEDS AT THIS TIME. WILL CONTINUE TO MONITOR.
--- NOTE | 2019-12-02 12:12 | NUR ---
Nutrition Follow-up: POD 1 CABG. Nursing reports pt did well with H2O this AM and wants to try jello. Denies N/V. Diet: Regular Wt: 176# (12/01); 173.2# (admit) Last BM: 11/28 per chart Labs noted: Glu 162, Ca 8.0, Alb 2.8 Meds noted: Protonix, Colace -Change to carb consistent diet; A1C 6.7. -Encourage PO intake and honor food preferences within diet restrictions. -Monitor wt. -RD following.
--- NOTE | 2019-12-02 12:51 | NUR ---
REPORTS PAIN 7/10 AT INCISION SITE. PERCOCET 10MG TAB GIVEN PER ORDERS. JACOB CARE PROVIDED. WILL CONTINUE TO MONITOR.
--- NOTE | 2019-12-02 13:49 | NUR ---
SITTING UP IN CHAIR. DID NOT EAT LUNCH. EATING PUTTING AT THIS TIME. ICE WATER PROVIDED. NO FURTHER NEEDS. WILL CONTINUE TO MONITOR.
--- NOTE | 2019-12-02 15:57 | NUR ---
ASSISTED BACK TO BED. COMPLETE LINEN CHANGE PROVIDED. RATES PAIN 8/10 AT INCISION SITE. MORPHINE 2MG IV GIVEN FOR PAIN. NO FURTHER NEEDS. WILL CONTINUE TO MONITOR.
--- NOTE | 2019-12-02 19:20 | NUR ---
REPORT REC'D AND CARE ASSUMED, REC'D PT RESTING IN BED WATCHING TV, AWAKE, ALERT, AND ORIENTED X 4, PT REQUESTING SOMETHING FOR PAIN, O2 @ 1 LITER, MIDSTERNAL DRSG CDI, SUBSTERNAL DRSG CDI, LEFT SUBSTERNAL HAWA DRAIN COMPRESSED WITH SEROSAGUINOUS DRAINAGE, ABD SOFT, BS ACTIVE, CRITICORE JACOB WITH NALINI COLORED URINE, BILAT HARVEST SITES WITH DERMABOND, OPEN TO AIR, INCISIONS WELL APPROXIMATED, TEDS ON, PPP, PT DENIES OTHER NEEDS, CALL LIGHT IN REACH.
--- NOTE | 2019-12-02 19:45 | NUR ---
PAIN PILL GIVEN BY NGA TRACEY RN
--- NOTE | 2019-12-02 21:10 | NUR ---
EVENING MEDS GIVEN, PT DENIES NEEDS, PT TACHYEPNIC, ENCOURAGED PT TO SLOW BREATHING DOWN, PT PANTING AFTER WEAK COUGH, STATES " IT HURTS", EXPLAINED OT PT IT WOULD HURT, BUT COUGHING WAS NECESSARY TO PREVENT PNEUMONIA, VSS.
--- NOTE | 2019-12-02 23:04 | NUR ---
RT AT BS FINISHING BREATHING TREATMENT, COUGHING AND DEEP BREATHING DONE WITH PATIENT, BUT TAKES MUCH ENCOURAGEMENT BEFORE PT WILL ATTEMPT. REASSESSMENT COMPLETED, DRSGS REMAIN CDI, PAIN RATING A 3-4 AT THIS TIME, BP STABLE, CM SR.
--- NOTE | 2019-12-02 23:49 | NUR ---
PT MOANING IN ROOM WHEN ASKED WHAT IS WRONG STATES " I CAN'T GET COMFORTABLE", PT REPOSITIONED UP IN BED AND BP CUFF CHANGED TO OPPOSITE ARM FOR PATIENT COMFORT, VSS, WILL MONITOR CLOSELY FOR CHANGES.
[2019-12-03] VITALS (22 sets, daily range): BP systolic 100–124; BP diastolic 49–79
--- NOTE | 2019-12-03 01:25 | NUR ---
PT HOLLERING OUT WHEN COUGHING, STATES "IT HURTS", RATING PAIN "8" ON 0-10 PAIN SCALE, OXYCODONE 10/325 GIVEN PO FOR PAIN, PT DENIES FURTHER NEEDS.
--- NOTE | 2019-12-03 03:30 | NUR ---
RADIOLOGY AT BS FOR AM CXR
--- NOTE | 2019-12-03 05:20 | NUR ---
PT COMPLAINS OF INCISIONAL DISCOMFORT, PT REPOSITIONED UP IN BED, VSS, PERCOCET 5 GIVEN AT THIS TIME, WILL CONT TO MONITOR FOR CHANGES.
[2019-12-03 06:13] LABS: HEMATOCRIT 32.6 % (42.0-54.0); HEMOGLOBIN 10.1 g/dL (13.5-17.5); MCH 28.3 pg (26.0-34.0); MCV 91.3 fL (80.0-100.0); MEAN PLATELET VOLUME 9.5 fL (7.4-10.4); RBC 3.57 10x6/uL (4.20-6.10); RDW 15.5 % (11.5-14.5); WBC 17.2 10x3/uL (4.8-10.8)
[2019-12-03 06:42] LABS: ALBUMIN 2.6 g/dL (3.4-5.0); ALKALINE PHOSPHATASE 62 U/L (30-120); ALT (SGPT) 24 U/L (10-68); BILIRUBIN - TOTAL 0.91 mg/dL (0.2-1.3); CALC OSMOLALITY 268 mosm/kg (275-300); CALCIUM 8.5 mg/dL (8.5-10.1); CHLORIDE - SERUM 101 mmol/L (98-107); GLUCOSE 140 mg/dL (74-106); SODIUM 133 mmol/L (136-145); UREA NITROGEN 15 mg/dL (7-18); eGFR NON AFRICAN AMERICAN 76 mL/min (90-120)
--- NOTE | 2019-12-03 07:32 | NUR ---
0730- MOUTH CARE DONE, PT BRUSHED TEETH.
--- NOTE | 2019-12-03 19:30 | NUR ---
REPORT REC'D AND CARE ASSUMED, REC'D PT SITTING IN CHAIR WATCHING TV, STATES " I AM READY TO GET IN THE BED", LINES STRAIGHTENED AND PT ASSISTED X 1 BACK TO BED, GAIT STEADY, RIJ CVL DRSG CDI BOTH PORTS SALINE LOCKED, MIDSTERNAL DRSG CDI, SUBSTERNAL DRSG CDI, LEFT SUBSTERNAL HAWA DRAIN COMPRESSED WITH SEROSANGUINOUS DRAINAGE, CRITICORE JACOB PATENT DRAINING NALINI COLORED URINE, BILAT HARVEST SITES NOTED, INCISIONS WELL APPROXIMATED, NO DRAINAGE OR REDNESS, TEDS ON, PT DENIES PAIN OR NEEDS, BED IN LOW POSITION, CALL LIGHT IN REACH.
--- NOTE | 2019-12-03 21:05 | NUR ---
EVENING MEDS GIVEN, PT STATES "I AM HURTING REALLY BAD", PT RATING "8" ON 0-10 PAIN SCALE, PERCOCETT 10 GIVEN PO AT THIS TIME, ICE WATER PROVIDED ON REQUEST, PT DENIES FURTHER NEEDS, VISIBLE TO NURSES STATION.
--- NOTE | 2019-12-03 23:15 | NUR ---
REASSESSMENT COMPLETED, PT RESTING EYES CLOSED, RESP EVEN AND UNLABORED, O2 SAT 95%, O2 REMAINS AT 3LITERS VIA NC, WILL CONT TO MONITOR FOR CHANGES
[2019-12-04] VITALS (24 sets, daily range): BP systolic 95–128; BP diastolic 44–78
--- NOTE | 2019-12-04 01:34 | NUR ---
NO CHANGES IN STATUS AT THIS TIME.
--- NOTE | 2019-12-04 03:30 | NUR ---
RADIOLOGY AT BS FOR AM CXR
--- NOTE | 2019-12-04 03:50 | NUR ---
PT COMPLAINS OF INCISIONAL DISCOMFORT AFTER REPOSITIONING AFTER XRAY, PERCOCET 10 AND FRESH WATER PROVIDED.
--- NOTE | 2019-12-04 05:00 | NUR ---
PT ASSISTED UP TO RECLINER, CHG BATH AND COMPLETE LINEN CHANGE PROVIDED, PT COMBED HAIR AND BRUSHED TEETH, TOLERATED WELL, DENIES FURTHER NEEDS, BEDSIDE TABLE, YANKEUR, AND CALL LIGHT WITHIN REACH.
--- NOTE | 2019-12-04 06:30 | NUR ---
AM LAB DRAWN FROM CVL AND SENT TO LAB
[2019-12-04 06:34] LABS: HEMATOCRIT 31.9 % (42.0-54.0); HEMOGLOBIN 9.8 g/dL (13.5-17.5); MCHC 30.7 g/dL (31.0-37.0); MCV 91.1 fL (80.0-100.0); MEAN PLATELET VOLUME 9.6 fL (7.4-10.4); RBC 3.5 10x6/uL (4.20-6.10); RDW 15.3 % (11.5-14.5); WBC 14.8 10x3/uL (4.8-10.8)
[2019-12-04 06:59] LABS: ALBUMIN 2.6 g/dL (3.4-5.0); ANION GAP 7.2 mmol/L (8-16); BILIRUBIN - TOTAL 0.78 mg/dL (0.2-1.3); CALCIUM 8.7 mg/dL (8.5-10.1); CARBON DIOXIDE 28.6 mmol/L (21.0-32.0); CREATININE - SERUM 1.1 mg/dL (0.6-1.3); POTASSIUM - SERUM 3.8 mmol/L (3.5-5.1); PROTEIN - SERUM 6.5 g/dL (6.4-8.2)
--- NOTE | 2019-12-04 07:06 | NUR ---
0715-- MOUTH CARE DONE
--- NOTE | 2019-12-04 15:44 | NUR ---
1520: IV STARTED L FOREARM WITH 20G ON 1ST ATTEMPT 1530: R IJ DC'D. MANUAL PRESSURE HELD X 5 MIN AND SITE DRESSED WITH 2X2 AND TEGADERM.
--- NOTE | 2019-12-04 19:35 | NUR ---
PT RECEIVED SITTING UP IN BED WATCHING TV. PRN PAIN MEDICATION GIVEN PER MAR FOR INCISIONAL PAIN DUE TO COUGH SPELL. VS STABLE. NO OTHER NEEDS OR CONCERNS NOTED. CALL LIGHT IN REACH. WILL CONTINUE TO OBSERVE.
--- NOTE | 2019-12-04 22:04 | NUR ---
PT IN BED WATCHING TV. NO NEEDS MADE KNOWN. CALL LIGHT IN REACH.
--- NOTE | 2019-12-04 23:32 | NUR ---
PT RESTING WITH EYES CLOSED AND CHEST RISING. NO S/S OF DISTRESS. CALL LIGHT IN REACH. WILL CONTINUE TO OBSERVE
[2019-12-05] VITALS (15 sets, daily range): BP systolic 97–133; BP diastolic 44–68
--- NOTE | 2019-12-05 01:00 | NUR ---
PT RESTIN WITH EYES CLOSED AND CHEST RISING. NO S/S OF DISTRESS. CALL LIGHT IN REACH. WILL CONTINUE TO OBSERVE.
[2019-12-05 06:34] LABS: HEMATOCRIT 31.4 % (42.0-54.0); HEMOGLOBIN 9.6 g/dL (13.5-17.5); MCH 27.8 pg (26.0-34.0); MCHC 30.6 g/dL (31.0-37.0); MEAN PLATELET VOLUME 9.8 fL (7.4-10.4); RBC 3.45 10x6/uL (4.20-6.10); RDW 15.3 % (11.5-14.5)
--- NOTE | 2019-12-05 06:41 | NUR ---
PT UP IN BEDSIDE CHAIR. TOLERATED WELL. CALL LIGHT IN REACH. WILL CONTINUE TO OBSERVE.
[2019-12-05 06:44] LABS: WBC 10.6 10x3/uL (4.8-10.8)
[2019-12-05 06:52] LABS: ALBUMIN 2.4 g/dL (3.4-5.0); ANION GAP 8.7 mmol/L (8-16); BILIRUBIN - TOTAL 0.62 mg/dL (0.2-1.3); CREATININE - SERUM 1.1 mg/dL (0.6-1.3); POTASSIUM - SERUM 3.7 mmol/L (3.5-5.1); PROTEIN - SERUM 6.5 g/dL (6.4-8.2)
--- NOTE | 2019-12-05 07:54 | NUR ---
Nutrition follow-up: Diet: Consistent CHO PO intake ~50% of meals Labs reviewed WT: 176# PO intake fair at this time. RDN following.
[2019-12-05] MEDS ORDERED: PERCOCET 5-3251 TAB PO (09:07)
[2019-12-05] MEDS ORDERED: COLACE100 MG PO (09:07)
[2019-12-05] MEDS ORDERED: ZOCOR20 MG PO (09:07)
--- NOTE | 2019-12-05 09:26 | NUR ---
0700 PT RECIEVED UP IN CHAIR ALERT AN DORIENTED VSS SEE SHIFT ASSESSMENT FOR DETAILS [address] CYR AND GILBERTO JACOB CATHETER 0900 ATE 75% BREAKFAST
--- NOTE | 2019-12-05 12:30 | NUR ---
HAWA DRAIN REMOVED BY DR CYR, DC ORDERS RECIEVED, FAMILY AWARE
--- NOTE | 2019-12-05 15:40 | NUR ---
DC INSTRUCTIONS REVIEWED WITH PT BY ALICIA FERNANDEZ AND BY MYSELF, PT DENIES QUESTIONS, PIV DCD TIP INTACT, ASSISTED TO VEHICLE, AND MOTHER IN LAW PRESENT AND ALSO REVIEWED DC INSTRUCTIONS WITH ALL THREE WHO ALL DENY QUESTIONS
--- NOTE | 2019-12-05 20:09 | MORECARE ---
CASE MANAGEMENT DISCHARGE SUMMARY PATIENT: BUTCH CHANG UNIT: [id number] ADM DATE: 11/30/19 AGE: 79 : 40 SEX: M [facility] AUTHOR: EMILY,SHELTON PHYSICIAN: REFERRING PHYSICIAN: DANA CYR MD DATE OF SERVICE: 12/05/19 Discharge Plan Patient Name: BUTCH CHANG Facility[facility]:[place] : 1940 Planned Disposition: Home Anticipated Discharge Date: Discharge Date: 12/05/2019 Expected LOS: Initial Reviewer: [email or web address] Initial Review Date: 12/01/2019 Generated: 12/05/19 9:08 pm Comments DCP- Discharge Planning Updated by [email or web address]: Diana Landeros on 12/05/19 7:[address] Patient Name: BUTCH CHANG Encounter No: [id number] : 1940 Primary Insurance: AETNA MEDICARE PPO or HMO Anticipated DC Date: Planned Disposition: Home External Planned Provider: : D/Marian LERMA SIGNED 12/05/19 @ 1250 DCP follow-up note: Patient and family in agreement with discharge plan. No changes to plan. Case management will follow and assist as needed. Diana Landeros DCP- Discharge Planning Updated by [email or web address]: Diana Landeros on 12/01/19 4:[address] Patient Name: BUTCH CHANG Admission Status: Elective Accout number: [id number] Admission Date: 11-30-2019 : 1940 Admission Diagnosis: Attending: DANA CYR Current LOS: 1 Anticipated DC Date: Planned Disposition: Home Primary Insurance: AETNA MEDICARE PPO or HMO Discharge Planning Comments: CM called and spoke with patient's spouse Genesis to complete initial dc planning assessment. CM educated patient on the CM role and verbal consent given by patient to complete assessment. Patient lives at home with spouse. At discharge patient plans to return and feels this is a safe discharge. CM discussed availability of home health, rehab services, and medical equipment. Patient may need walk test if 02 required at discharge. Patient denied known discharge needs at this time. CM will continue to follow and will assist as needed with dc plans/needs. Driver Trainee: Diana Landeros DCPIA - Discharge Planning Initial Assessment Updated by [email or web address]: Diana Landeros on 12/01/19 5:12 pm * Is the patient Alert and Oriented? Yes * How many steps to enter\exit or inside your home? ramp * PCP [facility] - [place] * Pharmacy [facility] - [place] * Preadmission Environment Home with Family * ADLs Independent * Equipment Cane * List name and contact numbers for known caregivers / representatives who currently or will assist patient after discharge: Genesis Tidwell - Spouse - [phone], * Verbal permission to speak to the caregivers and representatives has been obtained from the patient. Yes * Community resources currently utilized None * Additional services required to return to the preadmission environment? No * Can the patient safely return to the preadmission environment? Yes * Has this patient been hospitalized within the prior 30 days at any hospital? No Coverage Notice Reviewer: [email or web address] - Diana Landeros Notice Issued Date-Time: 12/05/2019 12:50 Notice Type: IM Discharge Notice Notice Delivered To: Patient Relationship to Patient: Self Machine Shop Worker Name: Delivery Method: HAND - Hand Delivered Jaylene Days: Prior Verbal Notification: Recipient Understood Notice: Yes Recipient Signature: Yes Med Rec Note Co-signed by Attending: Coverage Notice Comment: Last DP export: 12/01/19 4:19 pm Patient Name: BUTCH CHANG Page [id number] at 2009 All edits/amendments must be made on the electronic document DICTATION DATE: 12/05/192007 STOCK ROLLER: CITLALY 12/05/192007 RPT#: [id number] DC DATE:12/05/19 STATUS: DIS IN [facility] [address] [place] [address] END OF REPORT
== END 2019-12-05 15:41 | disposition home or self-care (01) | DRG 234 ==
LOC: D.CATH 09:38 → D.CVICU 14:48
PROVIDERS: Internal Medicine Interventional Cardiology; ADMIT Thoracic Surgery (Cardiothoracic Vascular Surgery); ATTEND Thoracic Surgery (Cardiothoracic Vascular Surgery)
PROC: B2151ZZ Fluoroscopy of Left Heart using Low Osmolar Contrast (ICD-10-PCS; 2019-11-30)
PROC: 4A023N7 Measurement of Cardiac Sampling and Pressure, Left Heart, Percutaneous Approach (ICD-10-PCS; 2019-11-30)
PROC: B2111ZZ Fluoroscopy of Multiple Coronary Arteries using Low Osmolar Contrast (ICD-10-PCS; principal; 2019-11-30 11:30)
PROC: 02100Z9 Bypass Coronary Artery, One Artery from Left Internal Mammary, Open Approach (ICD-10-PCS; 2019-12-01)
PROC: 021209W Bypass Coronary Artery, Three Arteries from Aorta with Autologous Venous Tissue, Open Approach (ICD-10-PCS; 2019-12-01)
PROC: 06BQ4ZZ Excision of Left Saphenous Vein, Percutaneous Endoscopic Approach (ICD-10-PCS; 2019-12-01)
PROC: 06BP4ZZ Excision of Right Saphenous Vein, Percutaneous Endoscopic Approach (ICD-10-PCS; 2019-12-01)
PROC: 5A1221Z Performance of Cardiac Output, Continuous (ICD-10-PCS; 2019-12-01)
PROC: B24BZZ4 Ultrasonography of Heart with Aorta, Transesophageal (ICD-10-PCS; 2019-12-01)
DX: I25.119 Atherosclerotic heart disease of native coronary artery with unspecified angina pectoris (principal); R31.9 Hematuria, unspecified

== ENCOUNTER → 2019-12-21 09:09 | Outpatient (CLI) | payer MEDICARE ==
[2019-12-01 12:39] VITALS: BMI 22.5
[~2019-12-21 09:09] MED LIST: ACETAMINOPHEN500 M1 PO; COLACE100 MG PO; FLOMAX0.4 MG PO; PERCOCET 5-3251 TAB PO; ZOCOR20 MG PO
[2019-12-21 09:42] LABS: BASOPHILS 0.5 % (0-2); EOSINOPHILS 3.6 % (0-7); HEMATOCRIT 34.8 % (42.0-54.0); HEMOGLOBIN 10.8 g/dL (13.5-17.5); IMMATURE GRANULOCYTES 0.9 % (0-5); LYMPHOCYTES 22.8 % (15-50); MCH 27.8 pg (26.0-34.0); MCV 89.7 fL (80.0-100.0); MEAN PLATELET VOLUME 8.4 fL (7.4-10.4); NEUTROPHILS 64.2 % (40-80); RBC 3.88 10x6/uL (4.20-6.10); RDW 15.3 % (11.5-14.5); WBC 11.8 10x3/uL (4.8-10.8)
[2019-12-21 09:43] LABS: PLATELET COUNT 521 10x3/uL (130-400)
[2019-12-21 09:54] LABS: CALC OSMOLALITY 279 mosm/kg (275-300); CALCIUM 9.4 mg/dL (8.5-10.1); CARBON DIOXIDE 27.1 mmol/L (21.0-32.0); CHLORIDE - SERUM 103 mmol/L (98-107); GLUCOSE 114 mg/dL (74-106); POTASSIUM - SERUM 3.9 mmol/L (3.5-5.1); SODIUM 138 mmol/L (136-145); UREA NITROGEN 21 mg/dL (7-18); eGFR NON AFRICAN AMERICAN 76 mL/min (90-120)
== END | disposition home or self-care (01) ==
LOC: D.LAB 09:09
PROVIDERS: ATTEND Thoracic Surgery (Cardiothoracic Vascular Surgery)
DX: I25.10 Atherosclerotic heart disease of native coronary artery without angina pectoris (principal)